=== PATIENT | male | born 1960 | race Caucasian/White ===

== ENCOUNTER 2020-07-03 08:25 | Outpatient (REF) | payer OTHER, SELFPAY | END 2020-07-03 08:26 | disposition home or self-care (01) | LOC: HO.LAB 08:25 | PROVIDERS: Visit Provider Internal Medicine | DX: Z20.822 Contact with and (suspected) exposure to COVID-19 (principal) | CPT/HCPCS: 36415; C9803; U0003 ==

== ENCOUNTER 2024-07-13 10:29 | Emergency (ER) | payer OTHER, SELFPAY ==
[2024-07-13 10:44] VITALS: BP 140/85; PULSE 61; RESP 19; TEMP 36.6; O2SAT 98; BMI 29.6
[2024-07-13 11:37] LABS: MANUAL DIFF FLAG NO
[2024-07-13 11:38] LABS: Basophils Percent Auto 0.6 % (0-2); Eosinophils Absolute Auto 0.1 X10*3/uL (0.0-0.4); Eosinophils Percent Auto 2.9 % (0-4); Hematocrit 40.8 % (42.0-52.0); Hemoglobin 13.7 g/dl (14.0-18.0); Imm Gran Abs Auto 0.01 X10*3/uL (0.00-0.03); Imm Gran Pct Auto 0.2 % (0.0-0.4); Lymphocytes Percent Auto 40.3 % (20-40); Mean Corpuscular HGB Conc 33.6 g/dl (31.0-36.0); Mean Corpuscular Hemoglobin 30.4 pg (27.0-33.0); Mean Corpuscular Volume 90.5 fL (80.0-98.0); Mean Platelet Volume 8.9 fL (9.4-12.4); Monocytes Absolute Auto 0.4 X10*3/uL (0.1-1.2); Monocytes Percent Auto 7.2 % (2-11); Neutrophils Absolute Auto 2.4 x10*3/uL (2.0-8.3); Neutrophils Percent Auto 48.8 % (45-73); Platelet Count 266 X10*3/uL (160-400); Red Blood Count 4.51 X10*6/uL (4.60-5.80); Red Cell Distribution Width 12.7 % (11.0-16.0); White Blood Count 4.8 X10*3/uL (4.8-10.8)
[2024-07-13 11:53] LABS: Alanine Aminotransferase 45 U/L (0-40); Albumin Level 4.2 g/dL (3.5-5.0); Alkaline Phosphatase 54 U/L (39-117); Anion Gap 8 (12-20); Aspartate Amino Transferase 30 U/L (5-37); Bilirubin Direct 0.1 mg/dL (0.0-0.5); Bilirubin Total 0.4 mg/dL (0.0-1.0); Blood Urea Nitrogen 21 mg/dL (9-16); Calcium 9.4 mg/dL (8.4-10.2); Carbon Dioxide 26 mmol/L (22-29); Chloride 107 mmol/L (96-108); Creatinine Clr Calc Pharmacy 119.2; Estimated Glomerular Filt Rate > 60; Glucose Random 94 mg/dL (60-115); Lipase 30 U/L (8-78); Potassium 3.9 mmol/L (3.3-5.1); Sodium 137 mmol/L (135-145); Total Protein 7.5 g/dL (6.5-8.0)
--- OUTSIDE RECORDS SUMMARY | 2024-07-13 12:30 | XMS_ITS | Encounter Summary ---
Author Organization [facility] Address [address] [place] [address] Care Team Providers Care Opthalmic Tech Name Role Phone Saira Quinonez MD Primary Care Prov ider Reason for Visit * Reason Onset Date Comments Abdominal Pain 07/13/2024 Encounter Details Date Type Department Care Team (Late st Contact Info) Description 07/13/2024 Telephone Adult [address] [phone] Saira Quinonez MD [address] [place] [phone] Abdominal Pain Social History Tobacco Use Types Packs/Day Years Used Date Smoking Tobacco: Never Smokeless Tobacco: Never Alcohol Use Standard Drinks/Week Comments Yes 0 (1 standard drink = 0.6 oz pur e alcohol) Sex and Gender Information Value Date Recorded Sex Assigned at Not on file Gender Identity Not on file Sexual Orientation Not on file documented as of this encounter Progress Notes * Addie Lopez RN - 07/13/2024 10:12 AM EST Called and spoke with pt pt c/o woke in sweats and pain above belly button denies sob or chest painhx of high chol prediabetic. Ptsts pain is 6/10 advised with sweats and epigastric pain could be cardiac related and should go to er for evaluation. * Vicente Gonzalez - 07/13/2024 8:43 AM EST Patient call requires triage: Symptoms patient is presenting: Patient called stating that he has been having stomach pains recently , states that he has been having night sweats recently , would like to speak to nurse to get advice on what to do How long has patient had these symptoms?: last couple of nights For ALL patients calling to schedule any appointment (routine, sick visit, follow up, consult, etc.) in the outpatient setting please ask the following questions: Do you have fever of higher than 101, sore throat with difficulty swallowing or severe shortness ofbreath? no If YES to any of these above symptoms, send a message to triage and do not book. Red dot. If no, an audio or video visit should be booked. Have you had close contact with someone with Coronavirus in the last 14 days? no Have you traveled abroad? no Have you traveled recently to another state outside of [place], [place], [place], [place], [place], [place], [place]? no o If yes, did you quarantine for 14 days or have a negative covid test? no If yes to any of the above, patient is not to be scheduled in office until after 14 day quarantine or negative covid test. If pain or injury related was it due to an accident at work or from a motor vehicle accident? If yes, date of accident/Injury: No If yes, gather 3rd libertarian insurance information [employer] Party Information: not applicable PCP: Saira South MD Payor: / No coverage found. documented in this encounter Plan of Treatment Not on file documented as of this encounter Visit Diagnoses Not on filedocumented in this encounter Care Teams Opthalmic Tech Relationship Specialty Start Date End Date Saira Quinonez MD PCP - General Internal Medicine 01/04/22 documented as of this encounter
--- OUTSIDE RECORDS SUMMARY | 2024-07-13 12:31 | XMS_ITS | Clinical Summary ---
Author Organization [facility] Address [address] [place] [address] Care Team Providers Care Spare Hand Name Role Phone Saira Quinonez MD Primary Care Prov ider Allergies No known active allergies Medications Medication Sig Dispensed Refills Start Date End Date Status omeprazole (PriLOSEC) [address] capsule TAKE ONE CAPSULE BY MOUTH EVERY DAY 04/05/2024 Active atorvastatin (LIPITOR) 20 mg tablet Take 1 Tablet by mouth daily. 04/22/2023 Active cholecalciferol (VITAMIN D-3) 25 mcg (1,000 unit) tablet Take 1 Tablet by mouth daily. 04/22/2023 Active acetaminophen (TYLENOL) 325 mg capsule Take by mouth. Active Active Problems Problem Noted Date Diagnosed Date Knee stiff, right 09/29/2023 Post-traumatic osteoarthritis of right knee 09/05 Primary osteoarthritis of left knee 09/29/2023 Prediabetes 08/25/2022 Overview (05/25/2024): Lab Results Component Value Date HGBA1C 5.8 08/25/2022 Gastroesophageal reflux disease without esophagi tis 08/23/2022 Osteoarthritis 02/20/2019 Tinea pedis 09/25/2018 Hyperlipidemia 02/08/2018 Overview (05/25/2024): Total cholesterol 214, triglycerides 337, 11/11/2010 Allergic rhinitis 02/10/2010 Encounters Date Type Department Care Team Description 07/13/2024 Telephone Adult [address] [phone] Saira Quinonez MD Abdominal Pain from Last 3 Months Immunizations Name Administration Dates Next Due JOE/Melia SARS-CoV-2 COVID -19, vector-nr, [id number], preservative free 01/23/2021 Td Tetanus diptheria (Tdvax) 7yo and older 05/11 Tdap Tetanus diptheria acell ular pertussis (Boostrix; Adacel) 7yo and older 08/26/2010 Surgical History Surgery Date Site/Laterality Comments LEG SURGERY PROCEDURE: HISTORICAL LEG SURGERY; COMMENT: knee arthroscopy HERNIA REPAIR PROCEDURE: REPAIR UMBILICAL HERNIA; COMMENT: also groin COLONOSCOPY 11/09/10 PROCEDURE: HISTORICAL COLONOSCOPY; COMMENT: tics; repeat in ten years OTHER SURGICAL HISTORY PROCEDURE: HISTORICAL MELANOMA Medical History Medical History Date Comments Unspecified malignant neopla sm of skin of other and unspecified parts of face 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 Breast cancer Mother age 50 breast ca Relation Name Status Comments Father Alive Mother Alive Social History Tobacco Use Types Packs/Day Years Used Date Smoking Tobacco: Never Smokeless Tobacco: Never Alcohol Use Standard Drinks/Week Comments Yes 0 (1 standard drink = 0.6 oz pur e alcohol) Sex and Gender Information Value Date Recorded Sex Assigned at Not on file Gender Identity Not on file Sexual Orientation Not on file Obstetrics History Last Filed Vital Signs Vital Sign Reading Time Taken Comments Blood Pressure 130/60 08/11/2023 10:34 AM EST Pulse 64 08/11/2023 10:34 AM EST Temperature - - Respiratory Rate - - Oxygen Saturation - - Inhaled Oxygen Concentration - - Weight 102 kg (225 lb) 04/05/2024 9:25 AM EDT Height 180.3 cm (5' 11 ) 04/05/2024 9:25 AM EDT Body Mass Index 31.38 04/05/2024 9:25 AM EDT Plan of Treatment Health Maintenance Due Date Last Done Comments Zoster Vaccines (1 of 2) 2010 COVID-19 Vaccine (2 - Jansse n risk series) 02/20/2021 01/23/2021 Depression Screening 05/15/2022 HIV Screening 05/15/2022 Social Influencers of Health Screening 05/15/2022 Influenza Vaccine (#1) 2024 Colorectal Cancer Screening: Colonoscopy 07/12/2027 07/12/2022 Cholesterol Screening (Lipid Panel) 08/26/2027 08/25/2022 DTaP,Tdap,and Td Vaccines (3 - Td or Tdap) 05/11/2031 05/11/2021, 08/26/2010 RSV Immunization Patients 60 + Years Old (1 - 1-dose 75+ series) 10/11/2035 Hepatitis C Screening Completed 05/07/2013 HIB Vaccines Aged Out No longer eligi ble based on patient's age to complete this topic HPV Vaccines Aged Out No longer eligi ble based on patient's age to complete this topic Hepatitis A Vaccines Aged Out No long er eligible based on patient's age to complete this topic Hepatitis B Vaccines Aged Out No long er eligible based on patient's age to complete this topic IPV Vaccines Aged Out No longer eligi ble based on patient's age to complete this topic MMR Vaccines Aged Out No longer eligi ble based on patient's age to complete this topic Meningococcal ACWY Vaccine Aged Out N o longer eligible based on patient's age to complete this topic Pneumococcal Vaccine: Pediatrics (0 to 5 Years) and At-Risk Patients (6 to 64 Years) Aged Out No longer eligible b ased on patient's age to complete this topic RSV Immunization Patients Under 20 months Aged Out No longer eligible b ased on patient's age to complete this topic Varicella Vaccines Aged Out No longer eligible based on patient's age to complete this topic Procedures Procedure Name Priority Date/Time Associated Diagnosis Comments LIPID PANEL Routine 08/25/2022 COLONOSCOPY Routine 07/12/2022 HEPATITIS C SCREENING Routine 05/07/2013 from Last 3 Months or Most Recently Relevant to Health Maintenance Results * (ABNORMAL) Lipid panel (08/25/2022) LDL/HDL Ratio 4 0 - 4 Triglycerides 209(A) 0 - 150 mg/dL Cholesterol 176 0 - 200 mg/dL HDL 40 40 mg/dL LDL Cholesterol 95 0 - 100 mg/dL Blood Venous blood specimen / Unknown Historical Provider LAB BLOOD ORDERAB LES * Colonoscopy (07/12/2022) Pathologist [facility], [facility]–1983 Colonoscopy No Interpretation , Abstracted Anatomical Region Laterality Modality Other Historical Provider MD SUYAPA MARCUS E * Hepatitis C Screening (05/07/2013) [facility] Hepatitis C Screening abstracted Historical Provider MD SUYAPA Gilbert from Last 3 Months or Most Recently Relevant to Health Maintenance Care Teams Spare Hand Relationship Specialty Start Date End Date Saira Quinonez MD PCP - General Internal Medicine 01/04/22
== END 2024-07-13 17:29 | disposition left against medical advice (07) ==
PROVIDERS: Emergency Provider Emergency Medicine Emergency Medical Services; PCP Internal Medicine
DX: R10.2 Pelvic and perineal pain (principal); Z79.899 Other long term (current) drug therapy
CPT/HCPCS: 36415; 80048; 80076; 83690; 85025; 99281